=== PATIENT | female | born 1990 | race Caucasian/White ===

== ENCOUNTER → 2016-12-11 | Outpatient (CLI) | payer BC ==
[~2016-12-11] VITALS: Ht 160 cm; Wt 72.3 kg
[~2016-12-11] MED LIST: ENDOCET 5-3251 EACH PO; IBUPROFEN800 MG PO; PRENATAL TABLE1 EAC3 PO
[2016-12-11 10:39] VITALS: BP 112/65
== END | disposition home or self-care (01) ==
LOC: IVINF 10:30
DX: Z31.82 Encounter for Rh incompatibility status (principal); Z3A.28 28 weeks gestation of pregnancy; Z67.41 Type O blood, Rh negative
CPT/HCPCS: 96372; J2790

== ENCOUNTER 2017-02-25 05:15 | Inpatient (IN) | payer BC ==
[2017-02-25] VITALS (21 sets, daily range): BP systolic 75–145; BP diastolic 43–73
[~2017-02-25] VITALS: Ht 157.5 cm; Wt 77.1 kg
[2017-02-25 06:19] LABS: EOSINOPHIL (%) 0.9 % (0-5); EOSINOPHIL COUNT 0.1 K/uL (0-0.3); HEMATOCRIT 36.5 % (36.0-46.0); IMMATURE GRANULOCYTE (%) 0.8 % (0.0-0.7); IMMATURE GRANULOCYTE COUNT 0.1 K/uL; INSTRUMENT ABS NEUTROPHIL CT 10.8 K/uL; LYMPHOCYTE COUNT 2.4 K/uL (1.0-2.8); MCH 30.9 PG (29.0-34.0); MCHC 33.7 G/DL (30.0-36.0); MCV 91.7 FL (83-99); MEAN PLAT.VOLUME 10.1 uM^3 (9.5-12.4); MONOCYTE (%) 6.6 % (3-12); NEUTROPHIL (%) 74.6 % (45-76); NEUTROPHIL COUNT 10.8 K/uL (1.8-6.4); PLATELET COUNT 252 K/uL (156-360); RBC DIS.WIDTH-CV 13.1 % (11.8-14.6); RBC DIS.WIDTH-SD 43.3 % (39-53); RED BLOOD COUNT 3.98 M/uL (3.80-5.20); WHITE BLOOD COUNT 14.4 K/uL (4.1-10.2)
[2017-02-25] MEDS ORDERED: IBUPROFEN800 MG PO (10:41)
[2017-02-26 07:57] VITALS: BP 106/60
[2017-02-26 14:52] VITALS: BP 114/73
[2017-02-26 22:54] VITALS: BP 103/59
[2017-02-27 07:27] VITALS: BP 109/70
[2017-02-27 14:35] VITALS: BP 113/74
== END 2017-02-27 17:15 | disposition home or self-care (01) | DRG 775 ==
LOC: LDRP-OP 05:15 → 2WEST 05:17 → LDRP-OP 02-26 09:57 → 2WEST 02-27 17:15
PROVIDERS: Nurse Practitioner
PROC: 00HU33Z Insertion of Infusion Device into Spinal Canal, Percutaneous Approach (ICD-10-PCS; principal; 2017-02-25)
PROC: 10E0XZZ Delivery of Products of Conception, External Approach (ICD-10-PCS; principal; 2017-02-25)
PROC: 3E0R3CZ (ICD-10-PCS; principal; 2017-02-25)
DX: O69.81X0 Labor and delivery complicated by cord around neck, without compression, not applicable or unspecified (principal); O99.334 Smoking (tobacco) complicating childbirth; F17.200 Nicotine dependence, unspecified, uncomplicated; Z3A.38 38 weeks gestation of pregnancy; Z37.0 Single live birth
CPT/HCPCS: 83030; 85025; 86850; 86900; 86901; C1755; J2790; J7120